=== PATIENT | female | born 1945 | race Caucasian/White ===

== ENCOUNTER 2018-11-17 07:55 | Day surgery (SDC) | payer MEDICARE, MEDICAID ==
[~2018-11-17 07:55] MED LIST: Lactated Ringers 1,000 ML IV SCH; Lidocaine 1%/Sod Bicarbonate in NS 8.4% 1 ML Syringe IDERM PRN; Sodium Chloride 0.9% 10 ML Syringe FLUSH PRN
--- NOTE | 2018-11-17 08:51 | PCM.PREANE ---
Preanesthetic Assessment - Procedure Proposed Procedure: egd and colonoscopy - Anesthesia/Transfusion/Family Hx Anesthesia History: Prior Anesthesia Reaction Type of Anesthesia Reaction: Other (see below) (nausea) Family History of Anesthesia Reaction: No Transfusion History: No Prior Transfusion(s) - Review of Systems General: No Symptoms Pulmonary: Shortness of Breath (copd) Cardiovascular: Palpitations (takes diazepam for that) Gastrointestinal: No Symptoms Neurological: No Symptoms Other: Reports: Neck Pain (fused neck last year- no pain) - Physical Assessment NPO Status Date: 11/16/18 NPO Status Time: 22:30 O2 Sat by Pulse Oximetry: 98 Respiratory Rate: 16 Vital Signs: Last Vital Signs Temp 98.8 F 11/17/18 08:00 Pulse 76 11/17/18 08:00 Resp 16 11/17/18 08:00 BP 129/81 11/17/18 08:00 Pulse Ox 98 11/17/18 08:00 Height: 5 ft 6 in Weight: 60.781 kg ASA Class: 3 Mental Status: Alert & Oriented x3 Airway Class: Mallampati = 1 Dentition: Reports: Broken Tooth/Teeth Thyro-Mental Finger Breadths: 3 Mouth Opening Finger Breadths: 3 (left jaw deteriorated- can't open mouth wide) ROM/Head Extension: Limited/Partial (stiff and surgery in past) Lungs: Clear to Auscultation, Normal Respiratory Effort Cardiovascular: Regular Rate, Regular Rhythm - Allergies Allergies/Adverse Reactions: Allergies Allergy/AdvReac Type Severity Reaction Status Date / Time No Known Allergies Allergy Verified 11/16/18 15:50 - Blood Blood Available: No - Acknowledgements Anesthesia Type Planned: MAC Pt an Appropriate Candidate for the Planned Anesthesia: Yes Alternatives and Risks of Anesthesia Discussed w Pt/Guardian: Yes Pt/Guardian Understands and Agrees with Anesthesia Plan: Yes PreAnesthesia Questionnaire HEENT History: Reports: Cataract, Other (See Below) Other HEENT History: Wear eyeglasses, ear infection, difficulty in swallowing, dry eyes, eustacian tube dysfunction, L ear pain, tinnitis, L otitis externa Cardiovascular History: Reports: Heart Failure, Heart Murmur, High Cholesterol Other Cardiovascular History: Fluid removed from heart x2, chest pain, varicose viens, pericaridal effusion, venous insufficiency Respiratory History: Reports: Bronchitis, Recurrent, COPD, Other (See Below) Other Respiratory History: Emphysema Gastrointestinal History: Reports: Chronic Constipation, Diverticulosis, GERD, Hiatal Hernia, Other (See Below) Other Gastrointestinal History: abdominal pain, dysphagia Genitourinary History: Reports: Renal Calculus, Other (See Below) Other Genitourinary History: dysuria, pelvic pain, groin pain, HPV virus, UTI Other OB/BYN History: 2 vaginal deliveries Musculoskeletal History: Reports: Arthritis, Fracture, Fibromyalgia, Neck Pain, Chronic, Osteoarthritis, Osteoporosis, RA Other Musculoskeletal History: ac joint bone spurts, low back pain, neck pain, muscle contraction, degenerative arthritis of cervical spine with corn compression, L rotator cuff impingement, L1 compression fracture, R foot stress fracture, spinal stenosis of lumbar region with radiculopathy, stenosis of cervical spine with myelopathy Neurological History: Reports: Concussion, Headaches, Chronic, Migraines Other Neuro History: unstable balnce, numbness, neuropathy Psychiatric History: Reports: Anxiety, Depression Endocrine/Metabolic History: Reports: Osteoporosis Hematologic History: Reports: None, Other (See Below) Other Hematologic History: hypokalemia Immunologic History: Reports: None Oncologic (Cancer) History: Reports: Other (See Below) Other Oncologic History: states did not have uterine or cervical CA, states "just the cells are there." States goes in for check-ups regularly. Dermatologic History: Reports: Other (See Below) Other Dermatologic History: thrombophlebitis - Past Surgical History HEENT Surgical History: Reports: Cataract Surgery, Tonsillectomy Cardiovascular Surgical History: Reports: None, Other (See Below) (drained fluid from the heart times and 2012) Respiratory Surgical History: Reports: None GI Surgical History: Reports: Appendectomy, Cholecystectomy Female Surgical History: Reports: Hysterectomy, LEEP Musculoskeletal Surgical History: Reports: Other (See Below) Other Musculoskeletal Surgeries/Procedures:: R knee arhtroscopy, L ulnar nerve trasposition Oncologic Surgical History: Reports: None - SUBSTANCE USE Smoking Status *Q: Former Smoker Tobacco Use Within Last Twelve Months: No Second Hand Smoke Exposure: No Days Per Week of Alcohol Use: 0 Recreational Drug Use History: No - HOME MEDS Home Medications: Home Meds Albuterol/Ipratropium [DuoNeb 3.0-0.5 MG/3 ML] 1 inh INH QID 04/03/14 [History] Budesonide/Formoterol [Symbicort 160-4.5 MCG] 2 puff INH BID 04/03/14 [History] Vitamin B6-pyridOXINE 200 mg PO DAILY 04/03/14 [History] Gabapentin [Neurontin] 300 mg PO QID 07/26/14 [History] Aspirin 162 mg PO BID 04/20/15 [History] Albuterol [Ventolin HFA] 1 puff INH Q4HR PRN 10/12/16 [History] Denosumab [Prolia] 1 dose SQ ASDIRECTED 10/12/16 [History] Fluticasone Propionate [Flonase Allergy Relief] 1 spray NASBOTH DAILY 10/12/16 [ History] Sucralfate 1 tab PO QID 10/12/16 [History] cycloSPORINE [Restasis] 1 drop EYEBOTH BID 10/12/16 [History] tiZANidine HCl [Zanaflex] 4 mg PO Q6HR PRN 10/12/16 [History] Acetaminophen with Codeine [Tylenol with Codeine #4 Tablet] 1 tab PO Q6H PRN [History] Biotin 10,000 mcg PO DAILY 11/16/18 [History] Ca Carbonate/Vitamin D3/Vit K [Calcium + D Soft Chewable Tab] 1 tab PO BID 11/16 [History] Colchicine [Colcrys] 0.6 mg PO DAILY 11/16/18 [History] Cyclobenzaprine [Flexeril] 10 mg PO TID PRN 11/16/18 [History] Dexlansoprazole [Dexilant] 60 mg PO DAILY 11/16/18 [History] Diltiazem HCl [Diltiazem 24Hr ER] 180 mg PO DAILY 11/16/18 [History] Famotidine 40 mg PO DAILY 11/16/18 [History] Furosemide 20 mg PO BID 11/16/18 [History] Ibuprofen 600 mg PO Q6H PRN 11/16/18 [History] Polyvinyl Alcohol [Artificial Tears] 1 drop EYEBOTH ASDIRECTED PRN 11/16/18 [ History] Potassium Chloride [Klor-Con M20] 20 meq PO BID 11/16/18 [History] Relafen 500 mg PO BID 11/16/18 [History] Rosuvastatin Calcium 10 mg PO DAILY 11/16/18 [History] Vitamin E 400 unit PO DAILY 11/16/18 [History] - CURRENT (IN HOUSE) MEDS Current Meds: Current Medications Lactated Ringer's (Ringers, Lactated) 1,000 mls @ 125 mls/hr IV ASDIRECTED DLAY Stop: 11/17/18 23:00 Last Admin: 11/17/18 08:26 Dose: 125 mls/hr Lidocaine/Sodium Bicarbonate (Buffered Lidocaine 1% In Ns 8.4%) 0.25 ml IDERM ONETIME PRN PRN Reason: Prior to IV Start Stop: 11/17/18 18:00 Last Admin: 11/17/18 08:26 Dose: 0.25 ml Sodium Chloride (Saline Flush) 10 ml FLUSH ASDIRECTED PRN PRN Reason: Keep Vein Open Stop: 11/17/18 18:00
[2018-11-17] MEDS ORDERED: Lidocaine 1% 4 ML ONE (09:39)
[2018-11-17] MEDS ORDERED: fentaNYL 100 MCG/2 ML SDV ONE (09:40)
[2018-11-17] MEDS ORDERED: Midazolam 1 MG/ML 2 ML SDV ONE (09:40)
[2018-11-17] MEDS ORDERED: Propofol 200 MG/20 ML SDV ONE ×2 (09:40→10:02)
[2018-11-17] MEDS ORDERED: Ondansetron 4 MG/2 ML SDV ONE (09:52)
--- NOTE | 2018-11-17 10:53 | PCM48HPAN ---
Post Anesthesia Note - EVALUATION WITHIN 48HRS OF ANESTHETIC Vital Signs in Normal Range: Yes Patient Participated in Evaluation: Yes Respiratory Function Stable: Yes Airway Patent: Yes Cardiovascular Function Stable: Yes Hydration Status Stable: Yes Pain Control Satisfactory: Yes Nausea and Vomiting Control Satisfactory: Yes Mental Status Recovered: Yes Pulse Rate: 60 SaO2: 98 Resp Rate: 16 Temperature: 97.9 F Blood Pressure: 143/72
--- NOTE | 2018-11-17 10:55 | PCM.PRNOTE ---
- Free Text/Narrative Note: Operative Report Date of Procedure: November 17, 2018 Pre Op Diagnosis: reflux, abdominal pain and diarrhea Post-Op Diagnosis: same Operative Procedures: 1. EGD with biopsy 2. Colonoscopy Primary Surgeon: Pooja Melchor MD Anesthesia Provider: Addy Blake CRNA Anesthesia Technique: MAC IV Fluid Replacement, Intraop: 800cc crystalloid Output, Urine Amount: 0cc EBL in mLs: 0cc Findings: 1. Small hiatal hernia (approx 1cm) 2. Findings suspicious for Castellanos's esophagus 3. Gastritis 4. Sigmoid polyp Specimens: 1. Gastric antrum for H. pylori 2. GE junction biopsies in 4 quadrants 3. Ascending colon mucosal biopsy 4. Transverse colon mucosal biopsy 5. descending colon mucosal biopsy 6. Sigmoid colon mucosal biopsy 7. Sigmoid colon polyp 8. Rectal mucosal biopsy Drain/Tubes: None Indication: The patient is an 73-year-old lady who presented to the clinic with reflux, abdominal pain and diarrhea. The patient was consented for a diagnostic EGD and colonoscopy. Risks of bleeding, and perforation were discussed, and the patient agreed to the risks and wished to proceed. Description of the procedure: The patient was taken back to the endoscopy suite, and placed in the left lateral decubitus position. A bite block was placed. The patient was sedated with MAC anesthesia. The Olympus video endoscope was inserted into the oropharynx and guided under direct vision into the esophagus, stomach, and duodenum. The gastric antrum was inspected and cold biopsy forceps were used to take tissue samples for H. pylori. The duodenal bulb and second portion of the duodenum were unremarkable. The scope was withdrawn to the stomach and retroflexed. There was increased bilious fluid. There was gastritis with linear erythema in the distal body of the stomach and in the antrum. No erosions or ulcers were noted. The scope was withdrawn to the esophagus. We noted a small hiatal hernia (approximately 1cm). Barretts esophagus changes were noted with a tongue of salmon colored mucosa in the distal esophagus and an additional island of salmon colored mucosa at another area. Castellanos's biopsies were taken using cold biopsy forceps in four quadrants at the GE junction. The endoscope was then withdrawn Next, anorectal examination was performed. No lesions, masses or hemorrhoids were noted externally or on palpation. The scope was placed into the rectum and advanced to cecum. Upon reaching the cecum, and the patients cecum was entered. There was minimal tortuosity of the colon. The ileocecal valve was well visualized and the appendiceal orifice identified. At this point, the scope was slowly withdrawn, paying attention to the mucosa. The patient had good bowel prep, 85-90% of the mucosa was visible. Mucosal biopsies were taken randomly throughout the colon with cold biopsy forceps due to her history of diarrhea. There was increased vascularity in the rectum and mucosal biopsies were taken using cold biopsy forceps. In the rectum, scope was retroflexed and some hemorrhoidal tissue was noted. The scope was placed back in the lumen and excess air was aspirated. The scope was removed. The patient tolerated the procedure very well. Complications: None apparent Condition: The patient was transported to PACU in stable condition. Recommendation: pt needs to have repeat EGD in 2 years for visual changes of Castellanos's esophagus, needs to be placed back on PPI therapy Pooja Melchor MD General Surgery
--- NOTE | 2018-11-17 10:55 | PCM.OPNOTE ---
- General Post-Op/Procedure Note Date of Surgery/Procedure: 11/17/18 Operative Procedure(s): EGD and colonoscopy Findings: 1. Small hiatal hernia 2. Findings suspicious for Castellanos's esophagus 3. Gastritis 4. Sigmoid polyp Pre Op Diagnosis: reflux, abdominal pain, diarrhea Post-Op Diagnosis: same Anesthesia Technique: MAC Primary Surgeon: Pooja Melchor Anesthesia Provider: Addy Blake Pathology: 1. Gastric antrum for H. pylori 2. GE junction biopsies in 4 quadrants 3. Ascending colon mucosal biopsy 4. Transverse colon mucosal biopsy 5. descending colon mucosal biopsy 6. Sigmoid colon mucosal biopsy 7. Sigmoid colon polyp 8. Rectal mucosal biopsy Fluid Replacement, Intraop: 800 Output, Urine Amount: 0 EBL in mLs: 0 Complications: none apparent Condition: Good
[2018-11-17 11:27] VITALS: BP 138/71
== END 2018-11-17 11:33 | disposition home or self-care (01) ==
LOC: JD.SDS 07:55
PROVIDERS: ATTEND Surgery
DX: K63.5 Polyp of colon (principal); K63.89 Other specified diseases of intestine; K64.9 Unspecified hemorrhoids; K20.9 Esophagitis, unspecified; K29.70 Gastritis, unspecified, without bleeding; K44.9 Diaphragmatic hernia without obstruction or gangrene; K22.70 Barrett's esophagus without dysplasia; K31.89 Other diseases of stomach and duodenum; K22.8 Other specified diseases of esophagus; K21.9 Gastro-esophageal reflux disease without esophagitis; I50.9 Heart failure, unspecified; E78.00 Pure hypercholesterolemia, unspecified; J43.9 Emphysema, unspecified; F32.9 Major depressive disorder, single episode, unspecified; F41.9 Anxiety disorder, unspecified; Z87.891 Personal history of nicotine dependence; Z79.82 Long term (current) use of aspirin; Z79.51 Long term (current) use of inhaled steroids; Z79.899 Other long term (current) drug therapy
CPT/HCPCS: 43239; 45380; J2001; J2250; J2405; J2704; J3010; J7120; 00813

== ENCOUNTER 2020-09-04 08:30 | Emergency (ER) | payer MEDICARE, MEDICAID ==
[2020-09-04 08:41] VITALS: PULSE 94
[2020-09-04] MEDS ORDERED: Sodium Chloride 0.9% 10 ML Syringe FLUSH PRN (08:59)
--- NOTE | 2020-09-04 09:27 | EDM.PDOC ---
ED HPI GENERAL MEDICAL PROBLEM - General Chief Complaint: Cardiovascular Problem Stated Complaint: HEART FLUTTERING Time Seen by Provider: 09/04/20 08:48 Source of Information: Reports: Patient, RN Notes Reviewed - History of Present Illness INITIAL COMMENTS - FREE TEXT/NARRATIVE: 74 yr old female comes in after having a lot of palpitations during the night. She does have hx of palpitations, wearing what looks like an event recorder right now, has one week to go. Mild chest heaviness off and on during the night, also felt brief episodes of dizziness and dyspnea. No nausea or vomiting. No fever, chills or severe cough. - Related Data Allergies Allergy/AdvReac Type Severity Reaction Status Date / Time No Known Allergies Allergy Verified 09/04/20 08:41 Home Meds: Home Meds Albuterol/Ipratropium [DuoNeb 3.0-0.5 MG/3 ML] 1 inh INH TID 04/03/14 [History] Budesonide/Formoterol [Symbicort 160-4.5 MCG] 2 puff INH BID 04/03/14 [History] Gabapentin [Neurontin] 300 mg PO QID 07/26/14 [History] Aspirin 324 mg PO DAILY 04/20/15 [History] Albuterol [Ventolin HFA] 1 puff INH Q4HR PRN 10/12/16 [History] Denosumab [Prolia] 1 dose SQ ASDIRECTED 10/12/16 [History] Fluticasone Propionate [Flonase Allergy Relief] 2 spray NASBOTH DAILY 10/12/16 [History] Sucralfate 1 tab PO DAILY 10/12/16 [History] cycloSPORINE [Restasis] 1 drop EYEBOTH BID 10/12/16 [History] tiZANidine HCl [Zanaflex] 4 mg PO Q8H 10/12/16 [History] Acetaminophen with Codeine [Tylenol with Codeine #4 Tablet] 1 tab PO Q4H PRN 11/16/18 [History] Biotin 5,000 mcg PO DAILY 11/16/18 [History] Colchicine [Colcrys] 0.6 mg PO DAILY 11/16/18 [History] Dexlansoprazole [Dexilant] 60 mg PO DAILY 11/16/18 [History] Famotidine 40 mg PO DAILY 11/16/18 [History] Furosemide 20 mg PO DAILY 11/16/18 [History] Rosuvastatin Calcium 10 mg PO DAILY 11/16/18 [History] Vitamin E 400 unit PO DAILY 11/16/18 [History] dilTIAZem HCL [Diltiazem 24Hr ER] 180 mg PO DAILY 11/16/18 [History] Acetic Acid [Acetic Acid 2% Otic Soln] 1 drop EARBOTH ASDIRECTED 09/04/20 [History] Cholecalciferol (Vitamin D3) [Vitamin D3] 1,000 unit PO DAILY 09/04/20 [History] Pantoprazole Sodium [Protonix] 40 mg PO DAILY 09/04/20 [History] Potassium Chloride 10 meq PO DAILY #14 tablet.er 09/04/20 [Rx] Past Medical History HEENT History: Reports: Cataract, Hard of Hearing, Other (See Below) Other HEENT History: Wear eyeglasses, ear infection, difficulty in swallowing, dry eyes, eustacian tube dysfunction, L ear pain, tinnitis, L otitis externa Cardiovascular History: Reports: Heart Failure, Heart Murmur, High Cholesterol Other Cardiovascular History: Fluid removed from heart x2, chest pain, varicose viens, pericaridal effusion, venous insufficiency Respiratory History: Reports: Bronchitis, Recurrent, COPD Other Respiratory History: Emphysema Gastrointestinal History: Reports: Chronic Constipation, Diverticulosis, GERD, Hiatal Hernia, Other (See Below) Other Gastrointestinal History: abdominal pain, dysphagia Genitourinary History: Reports: Renal Calculus, Other (See Below) Other Genitourinary History: dysuria, pelvic pain, groin pain, HPV virus, UTI 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 Musculoskeletal History: Reports: Arthritis, Fracture, Fibromyalgia, Neck Pain, Chronic, Osteoarthritis, Osteoporosis, RA Other Musculoskeletal History: ac joint bone spurts, low back pain, neck pain, muscle contraction, degenerative arthritis of cervical spine with corn compression, L rotator cuff impingement, L1 compression fracture, R foot stress fracture, spinal stenosis of lumbar region with radiculopathy, stenosis of cervical spine with myelopathy Neurological History: Reports: Concussion, Headaches, Chronic, Migraines Other Neuro History: unstable balnce, numbness, neuropathy Psychiatric History: Reports: Anxiety, Depression Endocrine/Metabolic History: Reports: Osteoporosis Hematologic History: Reports: Other (See Below) Other Hematologic History: hypokalemia Immunologic History: Reports: None Oncologic (Cancer) History: Reports: Other (See Below) Other Oncologic History: states did not have uterine or cervical CA, states "just the cells are there." States goes in for check-ups regularly. Dermatologic History: Reports: Other (See Below) Other Dermatologic History: thrombophlebitis - Past Surgical History HEENT Surgical History: Reports: Cataract Surgery, Tonsillectomy Cardiovascular Surgical History: Reports: Other (See Below) Other Cardiovascular Surgeries/Procedures: thoroscopy with pericaridal window, drain pericardial effusions GI Surgical History: Reports: Appendectomy, Cholecystectomy, Colonoscopy, EGD Female Surgical History: Reports: Hysterectomy, LEEP, Salpingo-Oophorectomy Musculoskeletal Surgical History: Reports: Other (See Below) Other Musculoskeletal Surgeries/Procedures:: R knee arhtroscopy, L ulnar nerve trasposition Oncologic Surgical History: Reports: None Social & Family History - Tobacco Use Tobacco Use Status *Q: Never Tobacco User - Caffeine Use Caffeine Use: Reports: Coffee - Recreational Drug Use Recreational Drug Use: No - Living Situation & Occupation Occupation: Unemployed ED ROS GENERAL - Review of Systems Review Of Systems: See Below Constitutional: Denies: Fever, Chills, Diaphoresis HEENT: Reports: No Symptoms Respiratory: Reports: Shortness of Breath, Cough (very occasional chronic) Cardiovascular: Reports: Chest Pain (mild, gone) GI/Abdominal: Denies: Abdominal Pain, Nausea, Vomiting Musculoskeletal: Denies: Shoulder Pain, Arm Pain Neurological: Reports: Dizziness (gone) ED EXAM, GENERAL - Physical Exam Exam: See Below Exam Limited By: No Limitations General Appearance: Alert, Anxious Eye Exam: Bilateral Eye: PERRL Head: Atraumatic. No: Facial Swelling Neck: Supple, Other (No JVD) Respiratory/Chest: No Respiratory Distress, Lungs Clear, Normal Breath Sounds. No: Rales, Rhonchi, Wheezing Cardiovascular: Regular Rate, Rhythm GI/Abdominal: Non-Tender Extremities: Non-Tender. No: Pedal Edema, Leg Pain, Increased Warmth, Redness Neurological: Alert, Oriented, No Motor/Sensory Deficits Skin Exam: Warm, Dry, Normal Color #1 Interpretation EKG Date: 09/04/20 Rhythm: Other (NSR, one PAC) Rate (Beats/Min): 96 [place]: Normal P-Wave: Present QRS: Normal ST-T: Normal Course - Vital Signs Last Recorded V/S: Last Vital Signs Temp 98.2 F 09/04/20 08:38 Pulse 94 09/04/20 08:38 Resp 18 09/04/20 08:38 BP 138/78 09/04/20 08:38 Pulse Ox 100 09/04/20 08:38 - Orders/Labs/Meds Orders: Active Orders 24 hr Category Date Time Status EKG 12 Lead [EKG Documentation Completion] [RC] ROUTINE Care 09/04/20 08:37 Active Peripheral IV Care [RC] . DIRECTED Care 09/04/20 08:59 Active Chest 1V Frontal [CR] Stat Exams 09/04/20 08:58 Taken Sodium Chloride 0.9% [Saline Flush] Med 09/04/20 08:59 Active 10 ml FLUSH ASDIRECTED PRN Peripheral IV Insertion Adult [OM.PC] Stat Oth 09/04/20 08:59 Ordered Medication Orders Sodium Chloride (Saline Flush) 10 ml FLUSH ASDIRECTED PRN PRN Reason: Keep Vein Open Last Admin: 09/04/20 09:03 Dose: 10 ml Documented by: MARITO Labs: Laboratory Tests 09/04/20 09/04/20 Range/Units 08:38 08:38 WBC 4.57 (3.98-10.04) K/mm3 RBC 4.46 (3.98-5.22) M/mm3 Hgb 13.8 (11.2-15.7) gm/dl Hct 42.4 (34.1-44.9) % MCV 95.1 H (79.4-94.8) fl MCH 30.9 (25.6-32.2) pg MCHC 32.5 (32.2-35.5) g/dl RDW Std Deviation 44.0 (36.4-46.3) fL Plt Count 347 (182-369) K/mm3 MPV 9.3 L (9.4-12.3) fl Neut % (Auto) 55.0 (34.0-71.1) % Lymph % (Auto) 35.0 (19.3-51.7) % [place] % (Auto) 8.3 (4.7-12.5) % Eos % (Auto) 1.3 (0.7-5.8) Baso % (Auto) 0.4 (0.1-1.2) % Neut # (Auto) 2.51 (1.56-6.13) K/mm3 Lymph # (Auto) 1.60 (1.18-3.74) K/mm3 [place] # (Auto) 0.38 H (0.24-0.36) K/mm3 Eos # (Auto) 0.06 (0.04-0.36) K/mm3 Baso # (Auto) 0.02 (0.01-0.08) K/mm3 Sodium 141 (136-145) mEq/L Potassium 3.1 L (3.5-5.1) mEq/L Chloride 103 (98-107) mEq/L Carbon Dioxide 26 (21-32) mEq/L Anion Gap 15.1 H (5-15) BUN 5 L (7-18) mg/dL Creatinine 0.8 (0.55-1.02) mg/dL Est Cr Clr Drug Dosing 58.30 mL/min Estimated GFR (MDRD) > 60 (>60) mL/min BUN/Creatinine Ratio 6.3 L (14-18) Glucose 117 H (83-115) mg/dL Calcium 9.0 (8.5-10.1) mg/dL Total Bilirubin 0.5 (0.2-1.0) mg/dL AST 13 L (15-37) U/L ALT 21 (14-59) U/L Alkaline Phosphatase 44 L (46-116) U/L Troponin I < 0.017 (0.00-0.056) ng/mL Total Protein 7.5 (6.4-8.2) g/dl Albumin 4.3 (3.4-5.0) g/dl Globulin 3.2 gm/dL Albumin/Globulin Ratio 1.3 (1-2) Meds: Medications Generic Name Dose Route Start Last Admin Trade Name Freq PRN Reason Stop Dose Admin Sodium Chloride 10 ml 09/04/20 08:59 09/04/20 09:03 Saline Flush FLUSH 10 ml ASDIRECTED PRN Administration Keep Vein Open - Re-Assessments/Exams Free Text/Narrative Re-Assessment/Exam: 09/04/20 09:54 K+ mildly low at 3.1. trop other labs nl, CXR looks good. She has been in sinus rythm, very occasional PAC. Note to HIM. Please send a copy of this record to her Research Compliance Specialist, Dr Yaa Foy or something like that. Departure - Departure Time of Disposition: 09:47 Disposition: Home, Self-Care 01 Condition: Fair Clinical Impression: Heart palpitations, Hypokalemia Prescriptions: Potassium Chloride 10 meq PO DAILY #14 tablet.er Referrals: Emery Sullivan MD [Primary Care Provider] - Forms: ED Department Discharge Additional Instructions: Your potassium was mildly low today at 3.1. Prescription has been sent to [facility] to take 1 tablet daily for 2 weeks. Try eat 2 or 3 bananas a day as discussed. Potatoes also are very high in potassium. Most other fruit and vegetables are also good. Continue heart moniter. Follow up clinic as needed. Return to ED as needed. Sepsis Event Note (ED) - Evaluation Sepsis Screening Result: No Definite Risk - Focused Exam Vital Signs: Vital Signs Temp Pulse Resp BP Pulse Ox 09/04/20 08:38 98.2 F 94 18 138/78 100 - My Orders Last 24 Hours: My Active Orders 09/04/20 08:37 EKG 12 Lead [EKG Documentation Completion] [RC] ROUTINE 09/04/20 08:58 Chest 1V Frontal [CR] Stat 09/04/20 08:59 Peripheral IV Care [RC] . DIRECTED Sodium Chloride 0.9% [Saline Flush] 10 ml FLUSH ASDIRECTED PRN Peripheral IV Insertion Adult [OM.PC] Stat - Assessment/Plan Last 24 Hours: My Active Orders 09/04/20 08:37 EKG 12 Lead [EKG Documentation Completion] [RC] ROUTINE 09/04/20 08:58 Chest 1V Frontal [CR] Stat 09/04/20 08:59 Peripheral IV Care [RC] . DIRECTED Sodium Chloride 0.9% [Saline Flush] 10 ml FLUSH ASDIRECTED PRN Peripheral IV Insertion Adult [OM.PC] Stat
[2020-09-04 10:13] VITALS: BP 114/76
--- NOTE | 2020-09-05 08:55 | CR ---
Chest: Portable view of the chest was obtained. Comparison: Previous chest x-ray of 09/20/18. Heart size and mediastinum are within normal limits for portable technique. Lungs are clear with no acute parenchymal change. Lungs are slightly hyperinflated suggesting emphysematous change. Scattered degenerative change is seen within the spine. Previous cervical spine surgery is noted. Mild scoliosis is noted. Impression: 1. Findings as noted above. 2. Nothing acute is appreciated. Diagnostic code #2
== END 2020-09-04 10:05 | disposition home or self-care (01) ==
LOC: JD.ED 08:30
DX: E87.6 Hypokalemia (principal); E78.00 Pure hypercholesterolemia, unspecified; I50.9 Heart failure, unspecified; K21.9 Gastro-esophageal reflux disease without esophagitis; J43.9 Emphysema, unspecified; G62.9 Polyneuropathy, unspecified; M19.90 Unspecified osteoarthritis, unspecified site; Z79.82 Long term (current) use of aspirin; Z79.899 Other long term (current) drug therapy
CPT/HCPCS: 36415; 71045; 71045-26; 80053; 84484; 85025; 93005; 93010; 99283; 99285-25

== ENCOUNTER 2023-02-10 21:09 | Emergency (ER) | payer MEDICARE, MEDICAID ==
[2023-02-10 21:19] VITALS: PULSE 85
[2023-02-10] MEDS ORDERED: Sodium Chloride 0.9% 10 ML Syringe FLUSH PRN (21:21)
[2023-02-10] MEDS ORDERED: Sodium Chloride 0.9% 1,000 ML IV STA (21:46)
[2023-02-10 22:11] LABS: APPEARANCE,URINE CLEAR (Clear); BILIRUBIN,URINE NEGATIVE (Negative); COLOR,URINE YELLOW (Yellow); GLUCOSE,URINE NEGATIVE (Negative); KETONES,URINE 3+ (Negative); LEUKOCYTE ESTERASE,URINE NEGATIVE (Negative); NITRITE,URINE NEGATIVE (Negative); OCCULT BLOOD,URINE NEGATIVE (Negative); PH,URINE 6.5 (5.0-8.0); PROTEIN,URINE NEGATIVE (Negative); UROBILINOGEN,URINE 0.2 (0.2-1.0)
[2023-02-10 22:18] LABS: BACTERIA,URINE FEW /hpf (FEW); HYALINE CASTS,URINE 0-5 /lpf (0-5); MUCUS,URINE MANY /hpf (FEW); RBC,URINE 0-5 /hpf (0-5); SQUAMOUS EPITHELIAL CELLS,UR 0-5 /hpf (0-5); WBC,URINE 0-5 /hpf (0-5)
[2023-02-10 22:26] LABS: BASOPHILS ABSOLUTE AUTO 0.02 K/mm3 (0.01-0.08); BASOPHILS PERCENT AUTO 0.3 % (0.1-1.2); EOSINOPHILS ABSOLUTE AUTO 0.02 K/mm3 (0.04-0.36); EOSINOPHILS PERCENT AUTO 0.3 (0.7-5.8); HEMATOCRIT 42.4 % (34.1-44.9); IMMATURE GRAN ABSOLUTE AUTO 0.01 K/mm3 (0.00-0.10); IMMATURE GRAN PERCENT AUTO 0.1 % (<=1.0); LYMPHOCYTES PERCENT AUTO 18.3 % (19.3-51.7); MEAN CORPUSCULAR HEMOGLOBIN 31.9 pg (25.6-32.2); MEAN CORPUSCULAR HGB CONC 33.7 g/dl (32.2-35.5); MEAN CORPUSCULAR VOLUME 94.6 fl (79.4-94.8); MONOCYTES ABSOLUTE AUTO 0.57 K/mm3 (0.24-0.36); MONOCYTES PERCENT AUTO 7.5 % (4.7-12.5); NEUTROPHILS ABSOLUTE AUTO 5.61 K/mm3 (1.56-6.13); NEUTROPHILS PERCENT AUTO 73.5 % (34.0-71.1); PLATELET COUNT,PLT 290 K/mm3 (182-369); RED BLOOD CELL COUNT 4.48 M/mm3 (3.98-5.22); WHITE BLOOD CELL COUNT,WBC 7.63 K/mm3 (3.98-10.04)
[2023-02-10 22:30] LABS: HEMOGLOBIN 14.3 gm/dl (11.2-15.7)
[2023-02-10 22:48] LABS: CORONAVIRUS COVID-19 NAA NEGATIVE (NEGATIVE); INFLUENZA A NAA NEGATIVE (NEGATIVE); RESPIRATORY SYNCYTIAL VIR NAA NEGATIVE (NEGATIVE)
[2023-02-10 22:50] LABS: ALBUMIN 3.7 g/dl (3.4-5.0); ANION GAP 15.6 (5-15); BILIRUBIN TOTAL 0.8 mg/dL (0.2-1.0); BUN/CREATININE RATIO 8.9 (14-18); CALCIUM 8.5 mg/dL (8.5-10.1); CREATININE 0.9 mg/dL (0.55-1.02); EST CRCL DRUG DOSING (CG) 47.6 mL/min; POTASSIUM,K 2.6 mEq/L (3.5-5.1); PROTEIN TOTAL,TP 7.3 g/dl (6.4-8.2)
[2023-02-10] MEDS ORDERED: Potassium Chloride 20 MEQ Tab.ER PO ONE (22:56)
[2023-02-11] MEDS ORDERED: Potassium Chloride 20 MEQ Tab.ER PO ONE (00:26)
[2023-02-11 03:20] VITALS: BP 124/70
== END 2023-02-11 03:18 | disposition home or self-care (01) ==
LOC: JD.ED 21:09
DX: J01.90 Acute sinusitis, unspecified (principal); E87.6 Hypokalemia; R19.7 Diarrhea, unspecified; I50.9 Heart failure, unspecified; E78.00 Pure hypercholesterolemia, unspecified; J44.9 Chronic obstructive pulmonary disease, unspecified; K21.9 Gastro-esophageal reflux disease without esophagitis; M19.90 Unspecified osteoarthritis, unspecified site; Z79.82 Long term (current) use of aspirin; Z79.899 Other long term (current) drug therapy; Z20.822 Contact with and (suspected) exposure to COVID-19
CPT/HCPCS: 0241U; 36415; 71046; 80053; 81001; 83630; 85025; 87045; 87046; 87493; 87899; 96360; 96361; 99284; A9270; J3490; J7030; 99283

== ENCOUNTER 2023-08-18 18:05 | Emergency (ER) | payer MEDICARE, MEDICAID ==
[2023-08-18] MEDS ORDERED: Sodium Chloride 0.9% 1,000 ML IV ONE (18:21)
[2023-08-18] MEDS ORDERED: Sodium Chloride 0.9% 10 ML Syringe FLUSH PRN (18:21)
[2023-08-18 18:45] LABS: BASOPHILS PERCENT AUTO 0.3 % (0.0-1.0); EOSINOPHILS ABSOLUTE AUTO 0.2 K/mm3 (0.0-0.4); EOSINOPHILS PERCENT AUTO 1.7 % (0.0-6.0); HEMATOCRIT 32.1 % (37.0-47.0); HEMOGLOBIN 10.7 gm/dl (12.0-16.0); IMMATURE GRAN ABSOLUTE AUTO 0.02 K/mm3 (0.00-0.05); IMMATURE GRAN PERCENT AUTO 0.2 % (0.0-0.4); LYMPHOCYTES ABSOLUTE AUTO 0.9 K/mm3 (1.0-4.8); MEAN CORPUSCULAR HEMOGLOBIN 32.6 pg (28.0-32.0); MEAN CORPUSCULAR HGB CONC 33.3 g/dl (32.0-36.0); MEAN CORPUSCULAR VOLUME 97.9 fl (83.0-99.0); MEAN PLATELET VOLUME 8.9 fl (9.4-12.3); MONOCYTES ABSOLUTE AUTO 0.9 K/mm3 (0.0-0.8); MONOCYTES PERCENT AUTO 9.5 % (0.0-8.0); NEUTROPHILS ABSOLUTE AUTO 7.7 K/mm3 (1.8-7.7); NEUTROPHILS PERCENT AUTO 79.3 % (41.0-71.0); PLATELET COUNT,PLT 348 K/mm3 (150-400); RED BLOOD CELL COUNT 3.28 M/mm3 (4.10-5.30); WHITE BLOOD CELL COUNT,WBC 9.73 K/mm3 (3.9-11.3)
[2023-08-18 19:12] LABS: A/G RATIO 0.7 (1-2); ALANINE AMINOTRANSFERASE,ALT 16 U/L (14-59); ALBUMIN 2.9 g/dl (3.4-5.0); ALKALINE PHOSPHATASE 61 U/L (46-116); ANION GAP 14.9 (5-15); ASPARTATE AMNIOTRANSFERASE,AST 13 U/L (15-37); BILIRUBIN TOTAL 0.4 mg/dL (0.2-1.0); BLOOD UREA NITROGEN,BUN 4 mg/dL (7-18); BUN/CREATININE RATIO 5.7 (14-18); C-REACTIVE PROTEIN 8.5 mg/dL (<1.0); CALCIUM 8.2 mg/dL (8.5-10.1); CARBON DIOXIDE,CO2 26 mEq/L (21-32); CHLORIDE,CL 99 mEq/L (98-107); CREATININE 0.7 mg/dL (0.55-1.02); ESTIMATED GFR 90 mL/min (>60); GLUCOSE RANDOM 104 mg/dL (70-99); MAGNESIUM 1.8 mg/dL (1.8-2.4); POTASSIUM,K 2.9 mEq/L (3.5-5.1); PROTEIN TOTAL,TP 6.8 g/dl (6.4-8.2); SODIUM,NA 137 mEq/L (136-145)
[2023-08-18 19:53] LABS: CORONAVIRUS COVID-19 NAA NEGATIVE (NEGATIVE); INFLUENZA A NAA NEGATIVE (NEGATIVE); RESPIRATORY SYNCYTIAL VIR NAA NEGATIVE (NEGATIVE)
[2023-08-18] MEDS ORDERED: Potassium Chloride 20 MEQ Tab.ER PO ONE (20:19)
[2023-08-18 20:23] LABS: APPEARANCE,URINE CLEAR (Clear); BILIRUBIN,URINE NEGATIVE (Negative); COLOR,URINE YELLOW (Yellow); GLUCOSE,URINE NEGATIVE (Negative); KETONES,URINE 3+ (Negative); LEUKOCYTE ESTERASE,URINE NEGATIVE (Negative); NITRITE,URINE NEGATIVE (Negative); OCCULT BLOOD,URINE NEGATIVE (Negative); PROTEIN,URINE NEGATIVE (Negative); UROBILINOGEN,URINE 0.2 (0.2-1.0)
[2023-08-18 20:37] LABS: AMORPHOUS SEDIMENT,URINE FEW /hpf (NOT SEEN); BACTERIA,URINE FEW /hpf (FEW); MUCUS,URINE FEW /hpf (FEW); RBC,URINE 0-5 /hpf (0-5); SQUAMOUS EPITHELIAL CELLS,UR 0-5 /hpf (0-5); WBC,URINE 0-5 /hpf (0-5)
[2023-08-18] MEDS ORDERED: Ondansetron 4 MG/2 ML SDV IVPUSH ONE (20:48)
[2023-08-18 21:30] VITALS: BP 124/77; PULSE 74
== END 2023-08-18 21:27 | disposition home or self-care (01) ==
LOC: JD.ED 18:05
DX: E87.6 Hypokalemia (principal); K21.9 Gastro-esophageal reflux disease without esophagitis; J43.9 Emphysema, unspecified; E78.00 Pure hypercholesterolemia, unspecified; I50.9 Heart failure, unspecified; Z79.899 Other long term (current) drug therapy; Z90.49 Acquired absence of other specified parts of digestive tract; M19.90 Unspecified osteoarthritis, unspecified site; Z20.822 Contact with and (suspected) exposure to COVID-19
CPT/HCPCS: 0241U; 36415; 71046; 71046-26; 80053; 81001; 83605; 83735; 85025; 86140; 96361; 96374; 99284-25; A9270-GY; J2405; J3490; J7030

== ENCOUNTER 2024-01-09 16:29 | Emergency (ER) | payer MEDICARE, OTHER | END 2024-01-09 16:32 | disposition left against medical advice (07) | LOC: JD.ED 16:29 | DX: Z53.21 Procedure and treatment not carried out due to patient leaving prior to being seen by health care provider (principal) ==

== ENCOUNTER 2024-02-22 13:34 | Emergency (ER) | payer MEDICARE, OTHER ==
[2024-02-22] MEDS: Sodium Chloride 0.9% 10 ML Syringe FLUSH SCH (14:18)
[2024-02-22] MEDS: Gadobenate Dimeglumine 529 MG/ML 15 ML SDV IVPUSH ONE (14:18)
[2024-02-22 14:44] LABS: BASOPHILS PERCENT AUTO 0.3 % (0.0-1.0); EOSINOPHILS PERCENT AUTO 0.2 % (0.0-6.0); HEMATOCRIT 37.2 % (37.0-47.0); HEMOGLOBIN 12.1 gm/dl (12.0-16.0); IMMATURE GRAN ABSOLUTE AUTO 0.03 K/mm3 (0.00-0.05); IMMATURE GRAN PERCENT AUTO 0.3 % (0.0-0.4); LYMPHOCYTES ABSOLUTE AUTO 1.8 K/mm3 (1.0-4.8); LYMPHOCYTES PERCENT AUTO 20.2 % (24.0-44.0); MEAN CORPUSCULAR HEMOGLOBIN 29.6 pg (28.0-32.0); MEAN CORPUSCULAR HGB CONC 32.5 g/dl (32.0-36.0); MEAN PLATELET VOLUME 8.8 fl (9.4-12.3); MONOCYTES ABSOLUTE AUTO 0.8 K/mm3 (0.0-0.8); MONOCYTES PERCENT AUTO 8.9 % (0.0-8.0); NEUTROPHILS ABSOLUTE AUTO 6.1 K/mm3 (1.8-7.7); NEUTROPHILS PERCENT AUTO 70.1 % (41.0-71.0); PLATELET COUNT,PLT 423 K/mm3 (150-400); RED BLOOD CELL COUNT 4.09 M/mm3 (4.10-5.30); WHITE BLOOD CELL COUNT,WBC 8.68 K/mm3 (3.9-11.3)
[2024-02-22 15:09] LABS: A/G RATIO 0.8 (1-2); ALBUMIN 3.3 g/dl (3.4-5.0); ANION GAP 11.4 (5-15); BILIRUBIN TOTAL 0.3 mg/dL (0.2-1.0); BUN/CREATININE RATIO 16.3 (14-18); C-REACTIVE PROTEIN 0.53 mg/dL (<0.30); CALCIUM 9.1 mg/dL (8.5-10.1); CREATININE 0.8 mg/dL (0.55-1.02); EST CRCL DRUG DOSING (CG) 47.97 mL/min; POTASSIUM,K 3.4 mEq/L (3.5-5.1); PROTEIN TOTAL,TP 7.4 g/dl (6.4-8.2)
[2024-02-22] MEDS: Sodium Chloride 0.9% 10 ML Syringe FLUSH PRN (15:32)
[2024-02-22 18:02] VITALS: BP 112/76; PULSE 86
== END 2024-02-22 18:02 | disposition home or self-care (01) ==
LOC: JD.ED 13:34
DX: M54.50 Low back pain, unspecified (principal); G89.29 Other chronic pain; R29.898 Other symptoms and signs involving the musculoskeletal system; I50.9 Heart failure, unspecified; E78.00 Pure hypercholesterolemia, unspecified; K21.9 Gastro-esophageal reflux disease without esophagitis; Z79.51 Long term (current) use of inhaled steroids; Z79.899 Other long term (current) drug therapy; Z79.82 Long term (current) use of aspirin; Z90.49 Acquired absence of other specified parts of digestive tract; Z90.710 Acquired absence of both cervix and uterus
CPT/HCPCS: 36415; 72131; 72149; 80053; 85025; 85652; 86140; 96374; 99284; A9577; J3490

== ENCOUNTER 2024-04-10 06:27 | Emergency (ER) | payer MEDICARE, OTHER ==
[2024-04-10 07:27] LABS: BASOPHILS PERCENT AUTO 0.1 % (0.0-1.0); HEMOGLOBIN 11.5 gm/dl (12.0-16.0); IMMATURE GRAN ABSOLUTE AUTO 0.03 K/mm3 (0.00-0.05); IMMATURE GRAN PERCENT AUTO 0.4 % (0.0-0.4); LYMPHOCYTES ABSOLUTE AUTO 0.6 K/mm3 (1.0-4.8); LYMPHOCYTES PERCENT AUTO 8.3 % (24.0-44.0); MEAN CORPUSCULAR HEMOGLOBIN 29.6 pg (28.0-32.0); MEAN CORPUSCULAR HGB CONC 31.9 g/dl (32.0-36.0); MEAN CORPUSCULAR VOLUME 92.8 fl (83.0-99.0); MEAN PLATELET VOLUME 8.7 fl (9.4-12.3); MONOCYTES ABSOLUTE AUTO 0.3 K/mm3 (0.0-0.8); MONOCYTES PERCENT AUTO 4.8 % (0.0-8.0); NEUTROPHILS ABSOLUTE AUTO 5.9 K/mm3 (1.8-7.7); NEUTROPHILS PERCENT AUTO 86.4 % (41.0-71.0); PLATELET COUNT,PLT 398 K/mm3 (150-400); RED BLOOD CELL COUNT 3.88 M/mm3 (4.10-5.30); WHITE BLOOD CELL COUNT,WBC 6.84 K/mm3 (3.9-11.3)
[2024-04-10] MEDS: HYDROmorphone 0.5 MG/0.5 ML Syringe IVPUSH ONE (07:35)
[2024-04-10] MEDS: Sodium Chloride 0.9% 10 ML Syringe FLUSH PRN (07:35)
[2024-04-10 07:49] LABS: A/G RATIO 0.7 (1-2); ALBUMIN 2.7 g/dl (3.4-5.0); ANION GAP 12.4 (5-15); BILIRUBIN TOTAL 0.2 mg/dL (0.2-1.0); BUN/CREATININE RATIO 17.1 (14-18); C-REACTIVE PROTEIN 0.67 mg/dL (<0.30); CALCIUM 9.1 mg/dL (8.5-10.1); CREATININE 0.7 mg/dL (0.55-1.02); EST CRCL DRUG DOSING (CG) 54.46 mL/min; POTASSIUM,K 3.4 mEq/L (3.5-5.1); PROTEIN TOTAL,TP 6.4 g/dl (6.4-8.2)
[2024-04-10 09:16] LABS: APPEARANCE,URINE CLEAR (Clear); BILIRUBIN,URINE NEGATIVE (Negative); COLOR,URINE YELLOW (Yellow); GLUCOSE,URINE NEGATIVE (Negative); KETONES,URINE NEGATIVE (Negative); LEUKOCYTE ESTERASE,URINE NEGATIVE (Negative); NITRITE,URINE NEGATIVE (Negative); OCCULT BLOOD,URINE NEGATIVE (Negative); PROTEIN,URINE NEGATIVE (Negative); UROBILINOGEN,URINE 0.2 (0.2-1.0)
[2024-04-10] MEDS: Gadobenate Dimeglumine 529 MG/ML 15 ML SDV IVPUSH ONE (09:24)
[2024-04-10] MEDS: Sodium Chloride 0.9% 10 ML Syringe FLUSH SCH (09:25)
[2024-04-10 09:26] LABS: RBC,URINE 0-5 /hpf (0-5); WBC,URINE 0-5 /hpf (0-5)
[2024-04-10 09:27] LABS: BACTERIA,URINE FEW /hpf (FEW); EPITHELIAL CELLS,URINE 0-5 /hpf (0-5); MUCUS,URINE RARE /hpf (FEW)
[2024-04-10 14:08] VITALS: BP 146/97; PULSE 74
== END 2024-04-10 13:55 | disposition home or self-care (01) ==
LOC: JD.ED 06:27
DX: M54.50 Low back pain, unspecified (principal); I50.9 Heart failure, unspecified; J40 Bronchitis, not specified as acute or chronic; K21.9 Gastro-esophageal reflux disease without esophagitis; M19.90 Unspecified osteoarthritis, unspecified site; Z90.49 Acquired absence of other specified parts of digestive tract; Z79.899 Other long term (current) drug therapy; Z79.82 Long term (current) use of aspirin
CPT/HCPCS: 36415; 72158; 80053; 81001; 85025; 86140; 96374; 99285; A9577; J1170; J3490; 99284

== ENCOUNTER 2024-04-16 04:32 | Emergency (ER) | payer MEDICARE, OTHER ==
[2024-04-16 04:44] VITALS: PULSE 76
[2024-04-16] MEDS: oxyCODONE 5 MG Tab PO ONE (05:27)
[2024-04-16 06:22] VITALS: BP 134/73
== END 2024-04-16 06:20 | disposition home or self-care (01) ==
LOC: JD.ED 04:32
DX: M54.50 Low back pain, unspecified (principal); I50.9 Heart failure, unspecified; E78.00 Pure hypercholesterolemia, unspecified; J44.9 Chronic obstructive pulmonary disease, unspecified; K21.9 Gastro-esophageal reflux disease without esophagitis; Z90.49 Acquired absence of other specified parts of digestive tract; Z90.710 Acquired absence of both cervix and uterus; Z79.82 Long term (current) use of aspirin; Z79.899 Other long term (current) drug therapy; Z79.891 Long term (current) use of opiate analgesic
CPT/HCPCS: 99284; A9270

== ENCOUNTER 2024-04-16 16:53 | Emergency (ER) | payer MEDICARE, OTHER ==
[2024-04-16] MEDS ORDERED: Sodium Chloride 0.9% 10 ML Syringe FLUSH PRN (17:33)
[2024-04-16 18:15] LABS: BASOPHILS PERCENT AUTO 0.1 % (0.0-1.0); EOSINOPHILS PERCENT AUTO 0.2 % (0.0-6.0); HEMATOCRIT 39.1 % (37.0-47.0); HEMOGLOBIN 12.8 gm/dl (12.0-16.0); IMMATURE GRAN ABSOLUTE AUTO 0.05 K/mm3 (0.00-0.05); IMMATURE GRAN PERCENT AUTO 0.4 % (0.0-0.4); LYMPHOCYTES ABSOLUTE AUTO 2.2 K/mm3 (1.0-4.8); LYMPHOCYTES PERCENT AUTO 18.3 % (24.0-44.0); MEAN CORPUSCULAR HEMOGLOBIN 29.8 pg (28.0-32.0); MEAN CORPUSCULAR HGB CONC 32.7 g/dl (32.0-36.0); MEAN CORPUSCULAR VOLUME 90.9 fl (83.0-99.0); MEAN PLATELET VOLUME 8.6 fl (9.4-12.3); MONOCYTES ABSOLUTE AUTO 1.3 K/mm3 (0.0-0.8); NEUTROPHILS ABSOLUTE AUTO 8.4 K/mm3 (1.8-7.7); PLATELET COUNT,PLT 430 K/mm3 (150-400); WHITE BLOOD CELL COUNT,WBC 12.03 K/mm3 (3.9-11.3)
[2024-04-16] MEDS: HYDROmorphone 0.5 MG/0.5 ML Syringe IVPUSH ONE (18:19)
[2024-04-16 18:35] LABS: A/G RATIO 0.8 (1-2); ALBUMIN 2.7 g/dl (3.4-5.0); ANION GAP 11.7 (5-15); BILIRUBIN TOTAL 0.2 mg/dL (0.2-1.0); C-REACTIVE PROTEIN 1.43 mg/dL (<0.30); CALCIUM 8.9 mg/dL (8.5-10.1); CREATININE 0.6 mg/dL (0.55-1.02); EST CRCL DRUG DOSING (CG) 63.54 mL/min; POTASSIUM,K 2.7 mEq/L (3.5-5.1); PROTEIN TOTAL,TP 6.2 g/dl (6.4-8.2)
[2024-04-16] MEDS ORDERED: Potassium Chloride 10 MEQ in Premix Bag 1 BAG IV SCH (19:15)
[2024-04-16] MEDS: Potassium Chloride 10 MEQ in Premix Bag 1 BAG IV SCH (19:20)
[2024-04-16 20:34] VITALS: BP 118/74; PULSE 88
== END 2024-04-16 19:40 ==
LOC: JD.ED 16:53
DX: M54.42 Lumbago with sciatica, left side (principal); J44.9 Chronic obstructive pulmonary disease, unspecified; I50.9 Heart failure, unspecified; E78.00 Pure hypercholesterolemia, unspecified; K21.9 Gastro-esophageal reflux disease without esophagitis; M19.90 Unspecified osteoarthritis, unspecified site; Z79.82 Long term (current) use of aspirin; Z79.899 Other long term (current) drug therapy
CPT/HCPCS: 36415; 80053; 85025; 85652; 86140; 96365; 96375; 99285; J1170; J3480